=== PATIENT | male | born 1990 | race Asian ===

== ENCOUNTER 2019-07-11 17:37 | Emergency (ER) | payer SELFPAY ==
[~2019-07-11] VITALS: Ht 175.3 cm; Wt 109.0 kg
[2019-07-11 17:41] VITALS: BP 147/107
[2019-07-11] MEDS ORDERED: IBUP100T54 PO (17:41)
[2019-07-11] MEDS ORDERED: ACETAMINOPHEN 500 MG TABLET PO ONE (18:45)
== END 2019-07-11 19:13 | disposition home or self-care (01) ==
LOC: EMS 17:38
DX: J40 Bronchitis, not specified as acute or chronic (principal); E03.9 Hypothyroidism, unspecified